=== PATIENT | male | born 1940 | race Caucasian/White ===

== ENCOUNTER → 2020-02-16 | Emergency (ER) | payer SELFPAY ==
[~2020-02-16] VITALS: Ht 188 cm; Wt 134.1 kg
[~2020-02-16] MED LIST: ASPIRIN 81M81 MG/TA2; DOXYCYCLINE 10100 MG PO; ELIQUIS 5MG PO; EPA FISH OIL1 SGL PO; JANTOVEN5 MG PO; KLOR-CON 1010 MEQ PO; LASIX 40MG TABL40 MG; LASIX 40MG TABL40 MG PO; LIPITOR 80MG80 MG PO; LIPITOR20 MG PO; LOPRESSOR 225 MG/TAB; PLAVIX 75MG TAB75 MG PO; TYLENOL 500MG500 MG PO; VITAMIN FLUSH-F1 CAP PO; ZESTRIL2.5 MG PO
[2020-02-16 19:48] VITALS: BP 165/93; PULSE 60; TEMP 98.1
== END ==
LOC: COL.ER 19:21
DX: M25.561 Pain in right knee (principal)

== ENCOUNTER 2020-12-02 11:51 | Emergency (ER) | payer MEDICARE ==
[~2020-12-02] VITALS: Ht 188 cm; Wt 133.6 kg
[2020-12-02 12:14] VITALS: TEMP 97.3
[2020-12-02 12:40] LABS: BASO # 0.1 (0.0-0.2); BASO % 0.7 % (0.0-2.0); EOS # 0.4 (0.0-0.7); EOS % 4.1 % (0-4.0); GRAN # 6.6 (1.4-6.5); HEMATOCRIT 45.8 % (42.0-52.0); LYMPH # 1.6 (1.2-3.4); LYMPH % 16.8 % (20.0-51.0); MEAN CELL VOLUME 90 fl (80.0-100.0); MEAN CORPUSCULAR HEMOGLOBIN 30 pg (27.0-31.0); MEAN CORPUSCULAR HGB CONC 33 g/dl (33.0-37.0); MEAN PLATELET VOLUME 10.1 fl (7.4-10.4); MONO # 0.8 (0.1-0.6); MONO % 8.1 % (1.7-9.3); PLATELET COUNT 164 K/mm3 (130-400); RED BLOOD COUNT 5.09 M/mm3 (4.20-5.60); REDCELL DISTRIBUTION WIDTH-CV 15.2 % (11.5-14.5)
[2020-12-02] MEDS ORDERED: NIASPAN 500MG500 MG PO (12:42)
[2020-12-02 12:48] LABS: CALCIUM 9.3 mg/dL (8.4-10.2); CREATININE, serum 0.87 (0.66-1.25); POTASSIUM 4.3 mmol/L (3.4-5.0)
[2020-12-02 13:11] LABS: INR 2.5 (0.8-3.0); PROTHROMBIN TIME 28.2 SECONDS (9.7-12.8)
[2020-12-02 13:17] LABS: D-DIMER < 200.00 ng/mLDDu (200-230)
[2020-12-02 13:38] VITALS: BP 169/87; PULSE 64
== END 2020-12-02 13:38 | disposition home or self-care (01) ==
LOC: COL.ER 11:51
PROVIDERS: Emergency Medicine
DX: M79.89 Other specified soft tissue disorders (principal); R60.0 Localized edema; I10 Essential (primary) hypertension; E78.5 Hyperlipidemia, unspecified; I25.2 Old myocardial infarction; I25.10 Atherosclerotic heart disease of native coronary artery without angina pectoris; E66.9 Obesity, unspecified; Z95.5 Presence of coronary angioplasty implant and graft; Z87.891 Personal history of nicotine dependence; Z79.01 Long term (current) use of anticoagulants; Z79.02 Long term (current) use of antithrombotics/antiplatelets; Z79.899 Other long term (current) drug therapy

== ENCOUNTER 2021-01-01 12:12 | Emergency (ER) | payer MEDICARE ==
[~2021-01-01] VITALS: Ht 188 cm; Wt 136.4 kg
[~2021-01-01 12:12] MED LIST changes: +NIASPAN 500MG500 MG PO
[2021-01-01 12:28] VITALS: TEMP 99.1
[2021-01-01 12:48] LABS: BASO # 0.1 (0.0-0.2); BASO % 0.7 % (0.0-2.0); EOS # 0.1 (0.0-0.7); EOS % 0.9 % (0-4.0); GRAN # 9.2 (1.4-6.5); HEMATOCRIT 41.9 % (42.0-52.0); HEMOGLOBIN 13.8 g/dl (13.5-18.0); LYMPH # 1.1 (1.2-3.4); LYMPH % 9.5 % (20.0-51.0); MEAN CELL VOLUME 91 fl (80.0-100.0); MEAN CORPUSCULAR HEMOGLOBIN 30 pg (27.0-31.0); MEAN CORPUSCULAR HGB CONC 33 g/dl (33.0-37.0); MEAN PLATELET VOLUME 10.4 fl (7.4-10.4); MONO # 0.7 (0.1-0.6); MONO % 6.4 % (1.7-9.3); PLATELET COUNT 163 K/mm3 (130-400); RED BLOOD COUNT 4.62 M/mm3 (4.20-5.60); REDCELL DISTRIBUTION WIDTH-CV 15.5 % (11.5-14.5)
[2021-01-01 12:53] LABS: INR 3.3 (0.8-3.0); PROTHROMBIN TIME 37.3 SECONDS (9.7-12.8)
[2021-01-01 12:55] LABS: PARTIAL THROMBOPLASTIN TIME 38.2 SECONDS (26.0-37.0)
[2021-01-01 18:13] VITALS: BP 139/73; PULSE 60
== END 2021-01-01 16:13 | disposition home or self-care (01) ==
LOC: COL.ER 12:12
PROVIDERS: Emergency Medicine
DX: R04.0 Epistaxis (principal); I48.91 Unspecified atrial fibrillation; I10 Essential (primary) hypertension; I25.10 Atherosclerotic heart disease of native coronary artery without angina pectoris; I25.2 Old myocardial infarction; Z79.01 Long term (current) use of anticoagulants; Z95.0 Presence of cardiac pacemaker; Z95.9 Presence of cardiac and vascular implant and graft, unspecified; Z87.891 Personal history of nicotine dependence; Z79.899 Other long term (current) drug therapy; Z79.02 Long term (current) use of antithrombotics/antiplatelets
CPT/HCPCS: J2060; J2270; J3430; J7030